=== PATIENT | female | born 1960 | race African-American/Black ===

== ENCOUNTER 2024-07-04 08:27 | Emergency (ER) | payer BC ==
[~2024-07-04] VITALS: Ht 162.6 cm; Wt 72.0 kg
[2024-07-04] MEDS ORDERED: baclofen (08:38)
[2024-07-04] MEDS ORDERED: lisinopril (08:38)
[2024-07-04 08:39] VITALS: O2SAT 98
[2024-07-04 09:16] LABS: CHLORIDE 108 mEq/L (98-107); POTASSIUM 3.7 mEq/L (3.5-5.1)
[2024-07-04 09:17] LABS: CARBON DIOXIDE 26 mEq/L (21-32); SODIUM 140 mEq/L (136-145)
[2024-07-04] MEDS: CLONIDINE 0.2MG TABLET PO ONE (09:17)
[2024-07-04 09:18] LABS: CALCIUM 10.1 mg/dL (8.7-10.4)
[2024-07-04 09:21] LABS: INR 0.9; PROTHROMBIN TIME 10.4 sec (9.6-11.0)
[2024-07-04 09:22] LABS: BASOPHILS % 0.7 % (0.0-2.0); CREATININE 0.9 mg/dL (0.6-1.0); EOSINOPHILS % 5.9 % (0.0-5.0); HEMATOCRIT. 35.7 % (36.0-48.0); HEMOGLOBIN. 11.7 g/dL (12.0-16.0); MEAN CORPUSCULAR HEMOGLOBIN 30.3 pg (28.0-32.0); MEAN CORPUSCULAR HGB CONC 32.9 g/dL (31.0-37.0); MEAN CORPUSCULAR VOLUME 92.3 fL (81.0-99.0); MEAN PLATELET VOLUME 8.5 fl (7.4-10.4); MONOCYTES % 8.1 % (2.0-8.0); NEUTROPHILS % 49.3 % (40.0-76.0); PLATELET 241 x1000/uL (130-400); RED BLOOD CELL COUNT 3.87 mill/uL (4.2-5.4); RED CELL DISTRIBUTION WIDTH 14.2 % (11.6-14.6); WHITE BLOOD COUNT 4.8 x1000/uL (4.5-11.0)
[2024-07-04 09:23] LABS: GLUCOSE 165 mg/dL (70-105); TROPONIN I HIGH SENSITIVITY 5 ng/L (3.0-34); UREA NITROGEN BLOOD 16 mg/dL (9-23)
[2024-07-04] MEDS ORDERED: MAGNESIUM/ALUMINUM HYDROXIDE/SIMETHICONE 30ML UDC PO PRN (11:15)
[2024-07-04] MEDS ORDERED: GUAIFENESIN 200MG/10ML SUGAR FREE UDC PO PRN (11:15)
[2024-07-04] MEDS ORDERED: MORPHINE SULFATE 2 MG/ML INJ (NOT FOR IM USE) IV PRN (11:15)
[2024-07-04] MEDS ORDERED: DOCUSATE SODIUM 100MG CAPSULE PO PRN (11:15)
[2024-07-04] MEDS ORDERED: CLONIDINE 0.1MG TABLET PO PRN (11:15)
[2024-07-04] MEDS ORDERED: ACETAMINOPHEN 325MG TABLET PO PRN ×2 (11:15)
[2024-07-04] MEDS ORDERED: NITROGLYCERIN 0.4MG TABLET SL SL PRN (11:30)
[2024-07-04] MEDS: ENOXAPARIN 40MG/0.4ML SYR SUBCUT SCH (11:53)
[2024-07-04] MEDS: HYDRALAZINE 20MG/ML VIAL IV NR (11:54)
[2024-07-04 11:58] LABS: TROPONIN I HIGH SENSITIVITY 7 ng/L (3.0-34)
[2024-07-04] MEDS: LISINOPRIL 20MG TABLET PO ONE (12:52)
[2024-07-04] MEDS: BACLOFEN 20MG TABLET PO ONE (12:52)
[2024-07-04] MEDS: BACLOFEN 10MG TABLET PO SCH (12:53)
[2024-07-04] MEDS: METFORMIN HCL 500MG TABLET PO ONE (13:14)
[2024-07-04 13:41] VITALS: BP 114/57; PULSE 77; RESP 16; TEMP 36.72516; O2SAT 97
[2024-07-04 14:21] LABS: TROPONIN I HIGH SENSITIVITY 5 ng/L (3.0-34)
[2024-07-04] MEDS ORDERED: ATORVASTATIN CALCIUM 40MG TABLET PO SCH (21:00)
[2024-07-05] MEDS ORDERED: LISINOPRIL 20MG TABLET PO SCH (09:00)
[2024-07-05] MEDS ORDERED: ASPIRIN 81MG EC TABLET PO SCH (09:00)
[2024-07-05] MEDS ORDERED: AMLODIPINE 10MG TABLET PO SCH (09:00)
== END 2024-07-04 15:31 | disposition left against medical advice (07) ==
LOC: ER 08:45
DX: I10 Essential (primary) hypertension (principal); Z90.49 Acquired absence of other specified parts of digestive tract; Z86.73 Personal history of transient ischemic attack (TIA), and cerebral infarction without residual deficits
CPT/HCPCS: 80048; 83036; 83880; 83690; 85025; 85610; 84484; 36415; 71045; 70450; 93005; 96372; 96374; 99285; J1650; J0360; Z7610 ×3